=== PATIENT | female | born 1975 | race Caucasian/White ===

== ENCOUNTER 2018-03-02 19:13 | Observation (INO) | payer SELFPAY ==
[2018-03-02 19:14] VITALS: BP 73/43; PULSE 86; RESP 13; TEMP 36.8; O2SAT 95; BMI 29.9
[2018-03-02 19:16] VITALS: BP 79/51; PULSE 88; RESP 21; O2SAT 94
[2018-03-02] MEDS: 0.9% Normal Saline 1,000 ML 999 ML IV ×2 (19:20→21:30)
[2018-03-02] MEDS: Activated Charcoal/Sorbitol 50 GM/240 ML BOT PO (19:26)
[2018-03-02 19:34] LABS: Absolute Lymphocyte Count 3.02 X10^3/ul (0.83-4.51); Absolute Neutrophil Count 3.1 X10^3/uL (2.0-7.7); Basophil# 0.02 X10^3/uL; Basophil% 0.3 % (0-1); Eosinophil# 0.03 X10^3/uL; Eosinophils% 0.5 % (0-5); Hematocrit 42.5 % (37-47); Hemoglobin 14.4 g/dl (12.0-15.0); Lymphocyte # 3.02 X10^3/ul (4.0); Lymphocyte % 46.1 % (19-41); Mean Corp Hgb Conc 33.9 g/gl (32-36); Mean Corpuscular Hgb 31.1 pg (27.0-32.0); Mean Corpuscular Volume 91.8 fL (81-99); Mean Platelet Vol. 10.3 fl (6.2-12.0); Monocyte# 0.36 X10^3/uL; Monocyte% 5.5 % (0-10); Neutrophil # 3.11 X10^3/uL (2.7-7.7); Neutrophil % 47.4 % (47-70); Platelet Count 261 K/mm3 (150-450); RBC Distribution Width CV 13.7 % (11.6-14.6); RBC Distribution Width SD 45.5 fl (35.1-43.9); Red Blood Count 4.63 M/mm3 (4.2-5.4); White Blood Count 6.6 K/mm3 (4.4-11.0)
[2018-03-02 19:38] LABS: POSITIVE COUNT NO; POSITIVE DIFFERENTIAL NO; POSITIVE MORPHOLOGY NO
[2018-03-02 19:50] LABS: Anion Gap 14 (5-15); BUN 11 mg/dL (7-18); BUN/Creat Ratio 12.1 RATIO (10-20); Calcium,Total 8.6 mg/dL (8.5-10.1); Chloride 111 mmol/L (98-107); Creatinine, Serum 0.91 mg/dL (0.55-1.02); EST Glomerular Filtration Rate 72 mL/min (>60); Est Glom Filt Rate - Afr Amer 87 mL/min (>60); Estimated Creatinine Clearance 71.73 ml/min; Glucose 106 mg/dL (74-106); Potassium 2.8 mmol/L (3.5-5.1); Sodium Level 145 mmol/L (136-145)
[2018-03-02 20:03] LABS: Pregnancy, Serum, hCG Quali. NEGATIVE Negative (0-9 Nonpreg)
--- NOTE | 2018-03-02 20:27 | ED.VISSUMM ---
- ER Visit Summary Date of Service: 03/02/18 Chief Complaint: Overdose History of Present Illness: The patient is a 43 F presenting after overdose. Patient was initially lethargic but responding to voice and sternal rub. She states she took trazodone, half bottle to sleep. She denies suicidal intent. She states she does want to go to sleep. She took between 10-20 50 mg trazodone. She has a history of depression. She denies intentional overdose. She was drinking wine as well. Denies other ingestion. Physical Examination: Vitals blood pressure 79/51, temperature 98.3, heart rate 88, respiratory rate 21. Pulse ox 94% on 2 L. HEENT exam is unremarkable. Neck is supple. Lungs are clear and equal bilaterally. Heart is regular rate and rhythm. Abdomen is soft nontender nondistended. Extremities are unremarkable. Skin is warm and dry. No focal neurologic deficit. Arousable to voice and sternal rub. Remainder of exam is unremarkable. Emergency Department Course and Treatment: Patient was given IV fluids with improvement of her blood pressure. She was given activated charcoal. CBC, chemistries unremarkable other than potassium 2.8. HCG negative. She became nauseated and started vomiting. She was unable to tolerate p.o. potassium replacement and was ordered IV potassium replacement. She was given phenergan IV. Alcohol level 206. Tylenol is negative. Salicylate 5.0. EKG is sinus rhythm rate of 91 with a QTC of 536. Discussed with poison control. Due to her prolonged QT, they recommend observation overnight. Discussed with the hospitalist for admission. Disposition: Admission Impression: Trazodone overdose, prolonged QT This note was generated with [employer] dictation software. It may contain incorrect words, spelling, and punctuation that were not noted in review of the chart prior to signing ED Disposition - Plan for ED Patient: Chief Complaint: Overdose
[2018-03-02 21:11] LABS: Acetaminophen (Tylenol) Level < 2.0 ug/mL (10.0-30.0)
--- NOTE | 2018-03-02 21:20 | ED.RN ---
patient incontinent and then assisted up to bsc. pt then vomited in bed and on self. pt cleaned up, gown, changed, and bedding changed. pt assisted back to bed after obtaining urine specimen. family at bedside.
[2018-03-02 21:37] VITALS: BP 119/90; PULSE 111; RESP 21; O2SAT 95
[2018-03-02] MEDS: proMETHazine 25 MG/ML Syringe 6.25 MG IV (21:43)
--- NOTE | 2018-03-02 21:43 | ED.RN ---
CALLED [facility]. SHE STATED SHE WILL LET YUE KNOW THE PT NEEDS TO BE SEEN.
--- NOTE | 2018-03-02 21:44 | ED.RN ---
PATIENT BEING COOPERATIVE AT THIS TIME. FAMILY AT BEDSIDE. PT CONTINUES TO DENY SHE IS SUICIDAL. PT THREW UP HER POTASSIUM AFTER SHE TOOK IT ORALLY. PT MEDICATED WITH IV PHENERGAN.
[2018-03-02 21:46] LABS: Amphetamine Urine VISTA NEGATIVE (<1000 ng/mL); Barbiturate Urine VISTA NEGATIVE (< 200 ng/mL); Benzodiazepine Urine VISTA NEGATIVE (< 200 ng/mL); Cocaine Urine VISTA NEGATIVE (< 300 ng/mL); Ecstacy Urine VISTA NEGATIVE (< 500 ng/mL); Methadone Urine VISTA NEGATIVE (< 300 ng/mL); PCP Urine VISTA NEGATIVE (< 25 ng/mL); THC Urine VISTA NEGATIVE (< 50 ng/mL); Vista UDS pH Range 6
--- NOTE | 2018-03-02 22:13 | ED.RN ---
patient bedding changed after urinating and having a liquid bowel movement in bed. pt also cleaned up. pt resting in bed without complaint.
--- NOTE | 2018-03-02 22:14 | NURSING ---
YUE CALLED TO LET US KNOW HE WILL BE HERE AROUND 12:15AM TO SEE PT.
[2018-03-02 22:39] LABS: Magnesium 2.5 mg/dL (1.6-2.6)
--- NOTE | 2018-03-02 22:45 | ED.RN ---
YUE SAID HE IS GOING TO LET MADISYN KNOW PT NEEDS TO BE SEEN IN THE MORNING.
--- NOTE | 2018-03-02 23:23 | ED.RN ---
THIS BROADCAST DESIGNER LET ICU KNOW THAT PT NEEDS TO BE SEEN BY [facility] IN THE MORNING.
--- NOTE | 2018-03-02 23:49 | PCM.HP.STD ---
Problem List (1) Overdose of trazodone Status: Acute (2) Depression Status: Chronic History of Present Illness Date of Admission: 03/02/18 Chief Complaint: Trazodone overdose today The patient is a 43 year old F with history of depression on trazodone 100 mg p.o. nightly, Klonopin and Celexa was brought to ED after she had about 10-20 tablets of trazodone 50 mg. She also drank to have glasses of wine. She took it for sleep. She denies suicidal intent/ideation or attempt. She does not feel that she is depressed. She had 2 times vomiting and was given Phenergan. EKG showed normal sinus rhythm with QTc 520 ms. Her vitals in the triage shows blood pressure 79/51, temperature 98.3, heart rate 88/min respiratory 21. Pulse ox was 94% on 3 L of oxygen. ED physician Dr. Hurt discussed with the poison control and she got charcoal 50 g. She also had Phenergan. She had about 2 L of IV fluid normal saline. Repeat blood pressure is 119/90. ICU admission, follow-up QTc interval and electrolytes and monitoring was recommended When I saw the patient, she is alert awake oriented ?3. She said she had vomiting which contains the pill of trazodone. She also had one loose bowel movement. Denies GI bleed. Denies any focal neurological symptoms, tremors, myoclonus. [] Past Medical History Past Medical History (Chronic Problems): Chronic Problems Depression (Chronic) Allergies No Known Allergies Allergy (Verified 10/17/16 17:44) Home Medications: Ambulatory Orders Medication Instructions Recorded Citalopram [Celexa] 40 mg PO DAILY 10/17/16 Clonazepam [Klonopin] 0.5 mg PO QHS PRN PRN 03/02/18 traZODone [Desyrel] 100 mg PO QHS 03/02/18 Smoking Status: Current every day smoker - *Family History Paternal History Items: No pertinent history Review of Systems Constitutional: Denies: Chills, Fever, Weight Change HEENT: Denies: Head Aches, Sinus Congestion, Sinus Drainage Cardiovascular: Denies: Chest Pain, Palpitations Respiratory: Denies: Cough, Shortness of breath at rest, Sputum production Gastrointestinal: Reports: Diarrhea, Nausea, Vomiting, - - 1 fecal incontinence. Denies: Abdominal Pain Genitourinary: Denies: Dysuria, Incontinence Musculoskeletal: Denies: Joint Pain, Joint Tenderness Skin: Denies: Rash, Wounds Neurological: Denies: Numbness, Tingling, Focal weakness Psychiatric: Reports: Depression. Denies: Anxiety, Homicidal Ideations, Suicidal Ideations Hematologic/ Lymphatic: Denies: Easy Bruising, Easy Bleeding VTE Information - Inpt Only VTE Present on Admission: No VTE Mechan Device Prophylaxis: None VTE Pharm Prophylaxis ordered?: Yes Patient Problems: Active and Suspected Problems Overdose of trazodone (Acute) - Physical Exam General: Alert, Oriented x3, Cooperative HEENT: Atraumatic, PERRLA, EOMI, Normocephalic Oral: Dry Mucosa Neck: Supple, No JVD, Negative Carotid Bruits Lungs: Clear to auscultation, Normal air movement Cardiovascular: Regular rate, Regular Rhythm, Normal S1, Normal S2, No murmurs Abdomen: Bowel Sounds Present, Soft, Non Tender, Non-Distended Extremities: No edema, Capillary Refill Less than 3 Seconds Skin: No rashes, No breakdown Musculoskeletal: No Tenderness to Palpation of Joints or Extremities Neurological: Cranial nerves II-XII grossly intact Psych/Mental Status: Normal Affect, Appropriate Vital Signs Temp Pulse Resp BP Pulse Ox 98.3 F 111 H 21 H 119/90 H 95 03/02/18 19:14 03/02/18 21:37 03/02/18 21:37 03/02/18 21:37 03/02/18 21:37 Assessment/Plan All Active Problems Overdose of trazodone (Acute) The patient is a 43 year old F with history of depression on trazodone 100 mg p.o. nightly, Klonopin and Celexa was brought to ED after she had about 10-20 tablets of trazodone 50 mg. She also drank to have glasses of wine. She took it for sleep. She denies suicidal intent/ideation or attempt. She does not feel that she is depressed. She had 2 times vomiting and was given Phenergan. EKG showed normal sinus rhythm with QTc 520 ms. Her vitals in the triage shows blood pressure 79/51, temperature 98.3, heart rate 88/min respiratory 21. Pulse ox was 94% on 3 L of oxygen. ED physician Dr. Hurt discussed with the poison control and she got charcoal 50 g. She also had Phenergan. She had about 2 L of IV fluid normal saline. Repeat blood pressure is 119/90. ICU admission, follow-up QTc interval and electrolytes and monitoring was recommended When I saw the patient, she is mildly drowsy and lethargic and felt sleepy but oriented ?3. She said she had vomiting which contains the pill of trazodone. She also had one loose bowel movement. Denies GI bleed. Denies any focal neurological symptoms, tremors, myoclonus. 1. Trazodone overdose with mild toxic encephalopathy from trazodone and alcohol: I see her admission and continuous cardiac monitoring. Repeat EKG every 4 hourly for 3 times. Replace electrolytes. LFT, CK and troponin ordered. U tox shows positive without alcohol. Otherwise U tox screen is negative. 2. QTC prolongation secondary to trazodone: Avoid QTC prolonging drug like Zofran, Phenergan, Celexa. Patient can have metoclopramide or prochlorperazine if needed for vomiting. 3. Toxic encephalopathy secondary to trazodone and alcohol use: 4 Hypokalemia with hyperchloremic metabolic acidosis: Anion gap is 14. Replace potassium to keep potassium about 4 mEq. ABG ordered. Repeat BMP, phosphorus and magnesium in the morning after replacement. 5. Depression: Hold home medications of trazodone, Klonopin and Celexa. DVT prophylaxis: On Lovenox 40 mg subcu daily This note was generated with [employer] dictation software. Every effort was made to ensure accuracy, however computerized flask fitter mistakes may persist. Code Visit Inpatient E&M: 26876 Init Hosp L3
[2018-03-02 23:51] VITALS: BP 104/67; PULSE 89; RESP 19; TEMP 36.8; O2SAT 98; BMI 31.3
[2018-03-03] VITALS (27 sets, daily range): BP systolic 82–120; BP diastolic 51–76; PULSE 75–96; RESP 15–22; TEMP 36.7–37; O2SAT 94–100
[2018-03-03] MEDS: 0.9% Normal Saline 1,000 ML 100 ML IV (00:47)
[2018-03-03 01:01] LABS: Bacteria 0 SEEN /hpf (None Seen); Mucous, Urine 0 SEEN /hpf (<or=2+); Red Blood Cells-Urine 0 SEEN /hpf (0-5)
[2018-03-03 01:09] LABS: AST(SGOT) 29 U/L (15-37); Alanine Aminotransfer ALT/SGPT 55 U/L (13-56); Alkaline Phosphatase 65 U/L (45-117); Bilirubin, Direct 0.09 mg/dL (0.00-0.30); CPK Total, Creatine Kinase 100 U/L (26-192); Globulin 3.2 g/dL (2.2-4.2); Protein, Total 7.2 g/dL (6.4-8.2)
[2018-03-03] MEDS: 0.9% NaCl Peripheral Flush Adult/Peds IV (01:22)
[2018-03-03] MEDS: 0.9% Normal Saline 1,000 ML 999 ML IV ×2 (01:22→02:26)
[2018-03-03 01:26] LABS: M R Staph aureus DNA By PCR Negative (Negative); Probe Check PASS; Specimen Processing Control PASS
[2018-03-03 02:21] LABS: Color, Urine Straw (Yellow); Glucose, Dipstick Normal (Normal); Ketone-Dipstick Negative (Negative); Leukocyte Esterase-Dipstick Negative /ul (Negative); Nitrite-Dipstick Negative (Negative); Occult Blood-Urine Negative /ul (Negative); Protein-Dipstick Negative (Negative); Urine Bilirubin Dipstick Negative (Negative); Urine Clarity Clear (Clear); Urine Urobilinogen Normal (Normal); Urine pH 6.5 (5.0 - 8.0)
[2018-03-03] MEDS: Enoxaparin 40 MG/0.4 ML Syringe SC (02:25)
[2018-03-03] MEDS: 0.9% Normal Saline 1,000 ML 250 ML IV (02:26)
[2018-03-03 02:32] LABS: Squamous Epithelial Cells - UA 5-10 SEEN /hpf (5-10); White Blood Cells 0-5 SEEN /hpf (0-5)
[2018-03-03 05:31] LABS: Blood Gas Specimen Type VEN; O2 Delivery Device Nasal Can; Time Given 515; VBG BASE EXCESS -9 mmol/L (-1.0-3.5); VBG Bicarbonate 18 mmol/L (22-26); VBG Oxygen Content 19 mmol/L (23-33); VBG PO2 53 mmHg (25-40); VBG SO2 84 % (50-70); VBG pCO2 36.8 mmHg (41-51)
[2018-03-03 06:34] LABS: Anion Gap 13 (5-15); BUN 5 mg/dL (7-18); BUN/Creat Ratio 6.7 RATIO (10-20); Calcium,Total 6.7 mg/dL (8.5-10.1); Chloride 117 mmol/L (98-107); Creatinine, Serum 0.75 mg/dL (0.55-1.02); EST Glomerular Filtration Rate 90 mL/min (>60); Est Glom Filt Rate - Afr Amer 109 mL/min (>60); Estimated Creatinine Clearance 87.03 ml/min; Glucose 87 mg/dL (74-106); Magnesium 1.7 mg/dL (1.6-2.6); Phosphorus 4.1 mg/dL (2.5-4.9); Potassium 3.8 mmol/L (3.5-5.1); Sodium Level 148 mmol/L (136-145)
[2018-03-03 07:26] LABS: Bedside Glucose 110 mg/dL (70-110)
--- NOTE | 2018-03-03 09:22 | PCM.PN.HOSP ---
Patient Problems: Active and Suspected Problems Overdose of trazodone (Acute) Subjective: Patient seen and examined. She was admitted after being found with altered mental status after she took about 10-20 tablets of 50 mg trazodone and one half glasses of wine in order to enable her to have some good sleep. She denied any suicidal intent or ideation. She was found to have prolonged QT of 520 ms on admission which gradually went down to around 519 ms. Poison control was called from the ED and she was given charcoal 50 g and also given Phenergan and IV fluid normal saline. She was hypokalemic and this was replaced. Next Patient has remained stable. She has no complaints this morning. She denies any fever chills, any cough or chest pain, shortness of breath, abdominal pain, any diarrhea vomiting. Review of systems otherwise negative. She is awaiting mental health counselor evaluation this morning. Patient denies any family stressors but per discussion with nurse, patient's recently left about a week ago and this could have contributed to her taking this overdose of trazodone. Review of systems otherwise negative. Labs and medications reviewed. Vitals/I&O's: Vital Signs Temp Pulse Resp BP Pulse Ox 98.1 F 87 22 H 114/76 94 03/03/18 08:00 03/03/18 09:00 03/03/18 09:00 03/03/18 09:00 03/03/18 09:00 Oxygen Flow Rate (L/min) 2 Oxygen Delivery Method Room Air Weight: 194 lb 7.163 oz Body Mass Index (BMI) 31.3 Intake and Output for Last 24 Hours 03/01/18 03/02/18 03/03/18 23:59 23:59 23:59 Intake Total 3232 / 3232 Balance 3232 / 3232 General: Alert, Oriented x3, Cooperative, No apparent distress HEENT: Atraumatic, PERRLA, EOMI, Normocephalic Oral: Moist Mucosa Neck: Supple, No JVD, Negative Carotid Bruits Lungs: Clear to auscultation, Normal air movement, No rhonchi, No wheeze, No rales Cardiovascular: Regular rate, Regular Rhythm, Normal S1, Normal S2, No murmurs Abdomen: Bowel Sounds Present, Soft, Non Tender, Non-Distended, No Hepato-splenomegaly Extremities: No clubbing, No cyanosis, No edema, Capillary Refill Less than 3 Seconds Skin: No rashes, No breakdown Musculoskeletal: No Tenderness to Palpation of Joints or Extremities Lymphatic: No Cervical, Supraclavicular, or Inguinal Adenopathy Neurological: Cranial nerves II-XII grossly intact, Motor Exam 5/5 strength throughout Psych/Mental Status: Normal Affect, Appropriate, Alert and oriented to time, place, person, mood and affect Laboratory Results 03/02/18 23:50: MRSA (PCR) Negative 03/03/18 01:20: Troponin I < 0.015 03/03/18 05:10: Sodium 148 H, Potassium 3.8, Chloride 117 H, Carbon Dioxide 18.0 L, Anion Gap 13, BUN 5 L, Creatinine 0.75, Estim Creat Clear Calc 87.03, Est GFR (MDRD) Af Amer 109, Est GFR (MDRD) Non-Af 90, BUN/Creatinine Ratio 6.7 L, Glucose 87, Calcium 6.7 L, Phosphorus 4.1, Magnesium 1.7 03/03/18 05:10: Troponin I < 0.015 03/03/18 05:24: Specimen Type NICKI, VBG pH 7.30 L, VBG pO2 53 H, VBG O2 Sat (Calc) 84 H, VBG O2 Content 19 L, VBG Base Excess -9 L, POC Mix VBG pCO2 Pt Tmp 36.8 L, O2 Delivery Device Nasal Can, Liter Flow 2.0, Blood Gas Notified Whom HOSP , Blood Gas Notified Time 515 Current Medications Enoxaparin Sodium (Lovenox) 40 mg SC DAILY@1000 LIZ Last Admin: 03/03/18 02:25 Dose: 40 mg Sodium Chloride () 250 mls @ 15 mls/hr IV .[id number] PRN PRN Reason: SALINE FLUSH Potassium Chloride/Dextrose/Sod Cl (Kcl 20meq In D5.45ns 1000ml) 1,000 mls @ 100 mls/hr IV .Q10H [facility] Last Admin: 03/03/18 06:33 Dose: 100 mls/hr Magnesium Hydroxide (Milk Of Magnesia) 30 ml PO DAILY PRN PRN PRN Reason: Constipation Metoclopramide HCl (Reglan) 10 mg IV Q6H PRN PRN PRN Reason: NAUSEA Sodium Chloride () 5 - 30 ml IV UD PRN PRN Reason: SALINE FLUSH Last Admin: 03/03/18 01:22 Dose: 10 ml Medical Necessity - Tobacco Use Smoking Status: Current every day smoker Tobacco Use: Cigarettes Assessment/Plan All Active Problems Overdose of trazodone (Acute) 1. Acute metabolic encephalopathy due to trazodone overdose and alcohol intake. Resolving. Patient is alert and oriented ?3. Poison Control consulted by ED. Received 50 g of charcoal. Initial EKG showed QTC of 526 and has trended down to around 519ms was hypotensive in ED with BP ~ 79/51; resolved with IVF administration troponin x 2 was negative will transfer to PCU from ICU. for mental health counselor evaluation today. will monitor with telemetry 2. QTc prolongation due to trazodone overdose improving. Was 526ms on admission; down to 519ms this morning. avoid QTc prolonging meds such as Zofran, Celexa and Phenergan. 3. Hypokalemia: Resolved. Was two-point unit on admission, now 3.8. 4. Mild hyperchloremic anion gap metabolic acidosis Bicarb up to 18 this morning. Anion gap today is 12. will monitor 5. Hypernatremia Na is 148 today. likely due to IVF administration will dc IVF and monitor 6. Depression: Home meds of trazodone, Klonopin and Celexa on hold. Awaiting mental health counselor evaluation. 7. DVT prophylaxis: Lovenox 40 mg subcu daily Code Visit OBSV E&M: 70055 Subsequent observation care L2
--- NOTE | 2018-03-03 09:32 | PN_ITS ---
Patient Problems: Active and Suspected Problems Overdose of trazodone (Acute) Subjective: Patient seen and examined. She was admitted after being found with altered mental status after she took about 10-20 tablets of 50 mg trazodone and one half glasses of wine in order to enable her to have some good sleep. She denied any suicidal intent or ideation. She was found to have prolonged QT of 520 ms on admission which gradually went down to around 519 ms. Poison control was called from the ED and she was given charcoal 50 g and also given Phenergan and IV fluid normal saline. She was hypokalemic and this was replaced. Next Patient has remained stable. She has no complaints this morning. She denies any fever chills, any cough or chest pain, shortness of breath, abdominal pain, any diarrhea vomiting. Review of systems otherwise negative. She is awaiting mental health counselor evaluation this morning. Patient denies any family stressors but per discussion with nurse, patient's recently left about a week ago and this could have contributed to her taking this overdose of trazodone. Review of systems otherwise negative. Labs and medications reviewed. Vitals/I&O's: Vital Signs Temp Pulse Resp BP Pulse Ox 98.1 F 87 22 H 114/76 94 03/03/18 08:00 03/03/18 09:00 03/03/18 09:00 03/03/18 09:00 03/03/18 09:00 Oxygen Flow Rate (L/min) 2 Oxygen Delivery Method Room Air Weight: 194 lb 7.163 oz Body Mass Index (BMI) 31.3 Intake and Output for Last 24 Hours 03/01/18 03/02/18 03/03/18 23:59 23:59 23:59 Intake Total 3232 / 3232 Balance 3232 / 3232 General: Alert, Oriented x3, Cooperative, No apparent distress HEENT: Atraumatic, PERRLA, EOMI, Normocephalic Oral: Moist Mucosa Neck: Supple, No JVD, Negative Carotid Bruits Lungs: Clear to auscultation, Normal air movement, No rhonchi, No wheeze, No rales Cardiovascular: Regular rate, Regular Rhythm, Normal S1, Normal S2, No murmurs Abdomen: Bowel Sounds Present, Soft, Non Tender, Non-Distended, No Hepato- splenomegaly Extremities: No clubbing, No cyanosis, No edema, Capillary Refill Less than 3 Seconds Skin: No rashes, No breakdown Musculoskeletal: No Tenderness to Palpation of Joints or Extremities Lymphatic: No Cervical, Supraclavicular, or Inguinal Adenopathy Neurological: Cranial nerves II-XII grossly intact, Motor Exam 5/5 strength throughout Psych/Mental Status: Normal Affect, Appropriate, Alert and oriented to time, place, person, mood and affect Laboratory Results 03/02/18 23:50: MRSA (PCR) Negative 03/03/18 01:20: Troponin I < 0.015 03/03/18 05:10: Sodium 148 H, Potassium 3.8, Chloride 117 H, Carbon Dioxide 18.0 L, Anion Gap 13, BUN 5 L, Creatinine 0.75, Estim Creat Clear Calc 87.03, Est GFR (MDRD) Af Amer 109, Est GFR (MDRD) Non-Af 90, BUN/Creatinine Ratio 6.7 L , Glucose 87, Calcium 6.7 L, Phosphorus 4.1, Magnesium 1.7 03/03/18 05:10: Troponin I < 0.015 03/03/18 05:24: Specimen Type NICKI, VBG pH 7.30 L, VBG pO2 53 H, VBG O2 Sat (Calc ) 84 H, VBG O2 Content 19 L, VBG Base Excess -9 L, POC Mix VBG pCO2 Pt Tmp 36.8 L, O2 Delivery Device Nasal Can, Liter Flow 2.0, Blood Gas Notified Whom HOSP , Blood Gas Notified Time 515 Current Medications Enoxaparin Sodium (Lovenox) 40 mg SC DAILY@1000 LIZ Last Admin: 03/03/18 02:25 Dose: 40 mg Sodium Chloride () 250 mls @ 15 mls/hr IV .[id number] PRN PRN Reason: SALINE FLUSH Potassium Chloride/Dextrose/Sod Cl (Kcl 20meq In D5.45ns 1000ml) 1,000 mls @ 100 mls/hr IV .Q10H [facility] Last Admin: 03/03/18 06:33 Dose: 100 mls/hr Magnesium Hydroxide (Milk Of Magnesia) 30 ml PO DAILY PRN PRN PRN Reason: Constipation Metoclopramide HCl (Reglan) 10 mg IV Q6H PRN PRN PRN Reason: NAUSEA Sodium Chloride () 5 - 30 ml IV UD PRN PRN Reason: SALINE FLUSH Last Admin: 03/03/18 01:22 Dose: 10 ml Medical Necessity - Tobacco Use Smoking Status: Current every day smoker Tobacco Use: Cigarettes Assessment/Plan All Active Problems Overdose of trazodone (Acute) 1. Acute metabolic encephalopathy due to trazodone overdose and alcohol intake. * Resolving. Patient is alert and oriented ?3. * Poison Control consulted by ED. Received 50 g of charcoal. Initial EKG showed QTC of 526 and has trended down to around 519ms * was hypotensive in ED with BP ~ 79/51; resolved with IVF administration * troponin x 2 was negative * will transfer to PCU from ICU. * for mental health counselor evaluation today. * will monitor with telemetry * 2. QTc prolongation due to trazodone overdose * improving. Was 526ms on admission; down to 519ms this morning. * avoid QTc prolonging meds such as Zofran, Celexa and Phenergan. * 3. Hypokalemia: Resolved. Was two-point unit on admission, now 3.8. 4. Mild hyperchloremic anion gap metabolic acidosis * Bicarb up to 18 this morning. Anion gap today is 12. * will monitor * 5. Hypernatremia * Na is 148 today. likely due to IVF administration * will dc IVF and monitor * 6. Depression: Home meds of trazodone, Klonopin and Celexa on hold. Awaiting mental health counselor evaluation. 7. DVT prophylaxis: Lovenox 40 mg subcu daily Code Visit OBSV E&M: 91422 Subsequent observation care L2
[2018-03-03] MEDS: 0.9% NaCl IVPB Med Flush (250 mL) 15 ML IV (11:31)
--- NOTE | 2018-03-03 17:48 | PCM.DC ---
- Discharge Diagnoses Current Active Problems: Current Active and Chronic Problems Overdose of trazodone (Acute) Depression (Chronic) You will use the following diet at home:: No restrictions Your food should be the consistency of: Regular Your liquids should be the consistency of: Regular/Thin Discharge Activity: Return to Normal Activity Weight Bearing Status: Weight bearing as tolerated Call your doctor if you observe: Shortness of breath, Dizziness Instructions: Identifying Causes of Stress, Know the Signs and Symptoms of Depression, Recognizing Suicide Warning Signs in Others, Recognizing Suicide Warning Signs in Yourself Additional Instructions: Do not take Celexa, Trazodone or Klonopin as they can cause QT prolongation. Follow up with PCP within one week with repeat EKG to check QTc, and for PCP to give OK to resume these meds. Allergies/Adverse Reactions: Allergies No Known Allergies Allergy (Verified 10/17/16 17:44) Orders to be completed after discharge: 12 Lead EKG [[facility]] Location: None Selected Primary Care Physician: Erick Cardozo MD [Primary Care Provider] - Please follow up with your Primary Care Physician in: within one week Test Results: Test results from this visit will be discussed in further detail at your follow-up appointment, if applicable. Proposed Discharge Date: 03/03/18
--- NOTE | 2018-03-03 17:51 | PCM.DC.SUM ---
Discharge Date and Diagnosis - Problem List Patient Problems: Active and Suspected Problems Overdose of trazodone (Acute) Date of Admission: 03/02/18 Date of Discharge: 03/03/18 - Primary Discharge Diagnosis Active and Suspected Problems Overdose of trazodone (Acute) - Secondary Discharge Diagnosis Chronic Problems Depression (Chronic) Hospital Course and Treatment Imaging Results: Laboratory Tests 03/02/18 03/02/18 03/02/18 19:10 19:20 19:20 WBC 6.6 RBC 4.63 Hgb 14.4 Hct 42.5 MCV 91.8 MCH 31.1 MCHC 33.9 RDW 13.7 RDW Differential 45.5 H Plt Count 261 MPV 10.3 Immature Gran % (Auto) 0.200 Neut % (Auto) 47.4 Lymph % (Auto) 46.1 H [place] % (Auto) 5.5 Eos % (Auto) 0.5 Baso % (Auto) 0.3 Absolute Neuts (auto) 3.1 Absolute Lymphs (auto) 3.02 Total Counted Not Reportable Specimen Type VBG pH VBG pO2 VBG O2 Sat (Calc) VBG O2 Content VBG Base Excess POC Mix VBG pCO2 Pt Tmp O2 Delivery Device Liter Flow Blood Gas Notified Whom Blood Gas Notified Time Sodium 145 Potassium 2.8 L Chloride 111 H Carbon Dioxide 20.0 L Anion Gap 14 BUN 11 Creatinine 0.91 Estim Creat Clear Calc 71.73 Est GFR (MDRD) Af Amer 87 Est GFR (MDRD) Non-Af 72 BUN/Creatinine Ratio 12.1 Glucose 106 Calcium 8.6 Phosphorus Magnesium Total Bilirubin Direct Bilirubin AST ALT Alkaline Phosphatase Total Creatine Kinase Troponin I Total Protein Albumin Globulin Serum , Qual Urine Color Urine Clarity Urine pH Ur Specific [place] Urine Protein Urine Glucose (UA) Urine Ketones Urine Occult Blood Urine Nitrite Urine Bilirubin Urine Urobilinogen Ur Leukocyte Esterase Urine RBC Urine WBC Ur Squamous Epith Cells Urine Bacteria Urine Mucus Salicylates Urine Opiates Screen Urine Methadone Screen Acetaminophen Ur Barbiturates Screen Ur Phencyclidine Scrn Ur Amphetamines Screen U Methamphetamin-MDMA U Benzodiazepines Scrn Urine Cocaine Screen U Cannabinoids Screen Ur Drug Screen Comment Ethyl Alcohol MRSA (PCR) POC Glucose 110 03/02/18 03/02/18 03/02/18 19:20 19:20 19:20 WBC RBC Hgb Hct MCV MCH MCHC RDW RDW Differential Plt Count MPV Immature Gran % (Auto) Neut % (Auto) Lymph % (Auto) [place] % (Auto) Eos % (Auto) Baso % (Auto) Absolute Neuts (auto) Absolute Lymphs (auto) Total Counted Specimen Type VBG pH VBG pO2 VBG O2 Sat (Calc) VBG O2 Content VBG Base Excess POC Mix VBG pCO2 Pt Tmp O2 Delivery Device Liter Flow Blood Gas Notified Whom Blood Gas Notified Time Sodium Potassium Chloride Carbon Dioxide Anion Gap BUN Creatinine Estim Creat Clear Calc Est GFR (MDRD) Af Amer Est GFR (MDRD) Non-Af BUN/Creatinine Ratio Glucose Calcium Phosphorus Magnesium 2.5 Total Bilirubin Direct Bilirubin AST ALT Alkaline Phosphatase Total Creatine Kinase Troponin I Total Protein Albumin Globulin Serum , Qual NEGATIVE Urine Color Urine Clarity Urine pH Ur Specific [place] Urine Protein Urine Glucose (UA) Urine Ketones Urine Occult Blood Urine Nitrite Urine Bilirubin Urine Urobilinogen Ur Leukocyte Esterase Urine RBC Urine WBC Ur Squamous Epith Cells Urine Bacteria Urine Mucus Salicylates 5.0 Urine Opiates Screen Urine Methadone Screen Acetaminophen < 2.0 L Ur Barbiturates Screen Ur Phencyclidine Scrn Ur Amphetamines Screen U Methamphetamin-MDMA U Benzodiazepines Scrn Urine Cocaine Screen U Cannabinoids Screen Ur Drug Screen Comment Ethyl Alcohol 206.0 MRSA (PCR) POC Glucose 03/02/18 03/02/18 03/02/18 19:20 19:20 21:20 WBC RBC Hgb Hct MCV MCH MCHC RDW RDW Differential Plt Count MPV Immature Gran % (Auto) Neut % (Auto) Lymph % (Auto) [place] % (Auto) Eos % (Auto) Baso % (Auto) Absolute Neuts (auto) Absolute Lymphs (auto) Total Counted Specimen Type VBG pH VBG pO2 VBG O2 Sat (Calc) VBG O2 Content VBG Base Excess POC Mix VBG pCO2 Pt Tmp O2 Delivery Device Liter Flow Blood Gas Notified Whom Blood Gas Notified Time Sodium Potassium Chloride Carbon Dioxide Anion Gap BUN Creatinine Estim Creat Clear Calc Est GFR (MDRD) Af Amer Est GFR (MDRD) Non-Af BUN/Creatinine Ratio Glucose Calcium Phosphorus Magnesium Total Bilirubin 0.30 Direct Bilirubin 0.09 AST 29 ALT 55 Alkaline Phosphatase 65 Total Creatine Kinase 100 Troponin I Total Protein 7.2 Albumin 4.0 Globulin 3.2 Serum , Qual Urine Color Straw Urine Clarity Clear Urine pH 6.5 Ur Specific [place] 1.010 Urine Protein Negative Urine Glucose (UA) Normal Urine Ketones Negative Urine Occult Blood Negative Urine Nitrite Negative Urine Bilirubin Negative Urine Urobilinogen Normal Ur Leukocyte Esterase Negative Urine RBC 0 SEEN Urine WBC 0-5 SEEN Ur Squamous Epith Cells 5-10 SEEN Urine Bacteria 0 SEEN Urine Mucus 0 SEEN Salicylates Urine Opiates Screen NEGATIVE Urine Methadone Screen NEGATIVE Acetaminophen Ur Barbiturates Screen NEGATIVE Ur Phencyclidine Scrn NEGATIVE Ur Amphetamines Screen NEGATIVE U Methamphetamin-MDMA NEGATIVE U Benzodiazepines Scrn NEGATIVE Urine Cocaine Screen NEGATIVE U Cannabinoids Screen NEGATIVE Ur Drug Screen Comment Ethyl Alcohol MRSA (PCR) POC Glucose 03/02/18 03/03/18 03/03/18 23:50 01:20 05:10 WBC RBC Hgb Hct MCV MCH MCHC RDW RDW Differential Plt Count MPV Immature Gran % (Auto) Neut % (Auto) Lymph % (Auto) [place] % (Auto) Eos % (Auto) Baso % (Auto) Absolute Neuts (auto) Absolute Lymphs (auto) Total Counted Specimen Type VBG pH VBG pO2 VBG O2 Sat (Calc) VBG O2 Content VBG Base Excess POC Mix VBG pCO2 Pt Tmp O2 Delivery Device Liter Flow Blood Gas Notified Whom Blood Gas Notified Time Sodium 148 H Potassium 3.8 Chloride 117 H Carbon Dioxide 18.0 L Anion Gap 13 BUN 5 L Creatinine 0.75 Estim Creat Clear Calc 87.03 Est GFR (MDRD) Af Amer 109 Est GFR (MDRD) Non-Af 90 BUN/Creatinine Ratio 6.7 L Glucose 87 Calcium 6.7 L Phosphorus 4.1 Magnesium 1.7 Total Bilirubin Direct Bilirubin AST ALT Alkaline Phosphatase Total Creatine Kinase Troponin I < 0.015 Total Protein Albumin Globulin Serum , Qual Urine Color Urine Clarity Urine pH Ur Specific [place] Urine Protein Urine Glucose (UA) Urine Ketones Urine Occult Blood Urine Nitrite Urine Bilirubin Urine Urobilinogen Ur Leukocyte Esterase Urine RBC Urine WBC Ur Squamous Epith Cells Urine Bacteria Urine Mucus Salicylates Urine Opiates Screen Urine Methadone Screen Acetaminophen Ur Barbiturates Screen Ur Phencyclidine Scrn Ur Amphetamines Screen U Methamphetamin-MDMA U Benzodiazepines Scrn Urine Cocaine Screen U Cannabinoids Screen Ur Drug Screen Comment Ethyl Alcohol MRSA (PCR) Negative POC Glucose 03/03/18 03/03/18 05:10 05:24 WBC RBC Hgb Hct MCV MCH MCHC RDW RDW Differential Plt Count MPV Immature Gran % (Auto) Neut % (Auto) Lymph % (Auto) [place] % (Auto) Eos % (Auto) Baso % (Auto) Absolute Neuts (auto) Absolute Lymphs (auto) Total Counted Specimen Type NICKI VBG pH 7.30 L VBG pO2 53 H VBG O2 Sat (Calc) 84 H VBG O2 Content 19 L VBG Base Excess -9 L POC Mix VBG pCO2 Pt Tmp 36.8 L O2 Delivery Device Nasal Can Liter Flow 2.0 Blood Gas Notified Whom HOSP Blood Gas Notified Time 515 Sodium Potassium Chloride Carbon Dioxide Anion Gap BUN Creatinine Estim Creat Clear Calc Est GFR (MDRD) Af Amer Est GFR (MDRD) Non-Af BUN/Creatinine Ratio Glucose Calcium Phosphorus Magnesium Total Bilirubin Direct Bilirubin AST ALT Alkaline Phosphatase Total Creatine Kinase Troponin I < 0.015 Total Protein Albumin Globulin Serum , Qual Urine Color Urine Clarity Urine pH Ur Specific [place] Urine Protein Urine Glucose (UA) Urine Ketones Urine Occult Blood Urine Nitrite Urine Bilirubin Urine Urobilinogen Ur Leukocyte Esterase Urine RBC Urine WBC Ur Squamous Epith Cells Urine Bacteria Urine Mucus Salicylates Urine Opiates Screen Urine Methadone Screen Acetaminophen Ur Barbiturates Screen Ur Phencyclidine Scrn Ur Amphetamines Screen U Methamphetamin-MDMA U Benzodiazepines Scrn Urine Cocaine Screen U Cannabinoids Screen Ur Drug Screen Comment Ethyl Alcohol MRSA (PCR) POC Glucose Mental health counselor Operations: None Procedures: None Summary of Care Provided: The patient is a 43 year old F with a history of depression and anxiety. She was admitted after she took several tablets of trazodone. She took about 10-20 tablets of 50 mg daily. She also drank about 1-1/2 glass of wine. She states she took it to get a good night sleep and denied any suicidal intention or ideation or attempts. She vomited twice once admitted to the ED because of vomiting. EKG done in the ED showed QTC of 520 ms. Blood pressure was 79/51 which resolved with IV fluid administration and heart rate was 88/min with respiratory rate of 21. Poison control was called by ED and she was given charcoal 50 g once an IV fluids normal saline. She was admitted and managed for trazodone toxicity, for follow-up QTC and electrolyte monitoring. QTc trended down to 519 and eventually to around 502ms. Patient was evaluated by mental health crisis and denied that she had any suicidal ideations and wanted to follow-up on outpatient basis. Patient remained stable and was discharged home on the evening of 03/03/2018. Her trazodone, Celexa and Klonopin were all stopped as they could cause QT prolongation. She is to have a follow-up EKG in about 2 days which is to be sent to her primary care doctor, Dr. Erick Lua for decision to be made about whether to resume antidepressants and antianxiety meds or otherwise. [] Discharge Activity: Return to Normal Activity Weight Bearing Status: Weight bearing as tolerated Call your doctor if you observe: Shortness of breath, Dizziness Other Amb Orders: 12 Lead EKG [[facility]] Location: None Selected Primary Care Physician: Erick Cardozo MD [Primary Care Provider] - Please follow up with your Primary Care Physician in: within one week Patient Instructions: Know the Signs and Symptoms of Depression, Recognizing Suicide Warning Signs in Yourself, Recognizing Suicide Warning Signs in Others, Identifying Causes of Stress Disposition: Home Minutes spent on discharge:: 35 Patient Condition:: Stable Medical Necessity - Tobacco Use Smoking Status: Current every day smoker Tobacco Use: Cigarettes Meaningful Use Info Meaningful Use Diagnoses (Choose all that apply): None applicable Code Visit Inpatient E&M: 06013 Disch Hosp
--- NOTE | 2018-03-03 19:23 | NURSING ---
pt d/c home w/mother, verbalized understanding for safety plan established by crisis counselor.
== END 2018-03-03 19:25 | disposition home or self-care (01) ==
LOC: ED 19:56 → ICU 23:23
PROVIDERS: Admitting Provider Internal Medicine; Emergency Provider Emergency Medicine; Family Provider Family Medicine; PCP Family Medicine; Visit Provider Student in an Organized Health Care Education/Training Program
DX: T43.211A Poisoning by selective serotonin and norepinephrine reuptake inhibitors, accidental (unintentional), initial encounter (principal); R53.83 Other fatigue; F32.9 Major depressive disorder, single episode, unspecified; I45.81 Long QT syndrome; Z79.899 Other long term (current) drug therapy; G92 Toxic encephalopathy; E87.2 Acidosis; E87.6 Hypokalemia; F41.9 Anxiety disorder, unspecified; F17.210 Nicotine dependence, cigarettes, uncomplicated; E87.0 Hyperosmolality and hypernatremia
CPT/HCPCS: 80048; 80076; 80307; 80320; 80329; 81001; 82550; 82803; 82962; 83735; 84100; 84484; 84703; 85025; 87641; 93005; 96361; 96372; 96374; 99218; 99282; J7030; J7050; A4216; G0378; G0480; J0610

== ENCOUNTER 2021-04-20 15:20 | Emergency (ER) | payer MEDICAID, SELFPAY ==
[2021-04-20 15:20] VITALS: BP 129/81; PULSE 95; RESP 16; TEMP 36.8; O2SAT 98; BMI 26.4
--- NOTE | 2021-04-20 15:41 | ED.VIS.FEGU ---
HPI HPI - Female History of Present Illness Chief Complaint: Flank Pain Narrative Narrative: 46-year-old female presenting with dysuria and hematuria for the last 3 days. She states that yesterday she started to have some right lower back pain. She denies history of kidney stones. Patient has been taking Uristat at home without relief. She has not had a fever or chills. She does not have nausea or vomiting. She denies vaginal or GI complaints. PFSH PFSH Medical History no medical history Home Medications sulfamethoxazole-trimethoprim [Bactrim DS] 1 tab PO BID 14 Days #28 tab 04/20/21 [Rx Last Taken Unknown] Allergy/AdvReac Type Severity Reaction Status Date / Time No Known Allergies Allergy Verified 04/20/21 15:24 Family History Father Cancer of stomach Cancer of lung Other Patient's father is Surgical History no surgical history Social History Smoking Status: Current every day smoker tobacco type: cigarettes ROS ROS ED Constitutional Constitutional ED: Denies chills or fever(s) Eyes Eyes: Denies blurry vision or change in vision ENT ENT ED: Denies ear pain or rhinorrhea Cardiovascular Cardiovascular: Denies palpitations or racing heartbeat Respiratory/Chest Respiratory/Chest: Denies cough or dyspnea Gastrointestinal Gastrointestinal: Denies abdominal pain, nausea or vomiting Genitourinary Genitourinary ED: Reports dysuria and urinary frequency Musculoskeletal Musculoskeletal: Reports other Details: Right lower back pain Integumentary Denies Abrasions or rash Neurologic Neurologic: Denies headache(s) or paresthesias EXAM Physical Exam Const Vital Signs: 04/20/21 15:20 Temperature 98.3 F Temperature Source Temporal Pulse Rate 95 Respiratory Rate 16 Blood Pressure 129/81 H Blood Pressure Mean 97 Pulse Ox 98 Oxygen Delivery Method Room Air Positive well nourished General Appearance ED: NAD; Negative for pallor HEENT Reports moist mucous membranes Negative for trauma Eyes PERRL and EOMs intact bilaterally Resp normal respiratory effort and clear to auscultation bilaterally Cardio regular rate and regular rhythm GI normal to inspection, nondistended, normoactive bowel sounds Back/Spine General Back: CVA tenderness right Neuro oriented x3 and CN's II-XII intact bilaterally Sensorium / Orientation: alert Psych mental status grossly normal Skin General Skin Exam: Negative for jaundice or pallor MDM MDM MDM Narrative Medical decision making narrative: Patient presented with UTI symptoms and slight CVA tenderness on the right. She has no systemic signs or symptoms. No history of kidney stones. Urinalysis consistent with UTI. She will be started on Bactrim to treat her for pyelonephritis. She is given return precautions. Impression: 1. Pyelonephritis Lab Data Labs: Laboratory Results - last 24 hr 04/20/21 16:00 Urine Color SEE COMMENT BELOW Urine Clarity Cloudy Urine pH 6.0 Ur Specific [place] 1.020 Urine Protein 100 H Urine Glucose (UA) Normal Urine Ketones Negative Urine Occult Blood 50 H Urine Nitrite Positive H Urine Bilirubin 6 H Urine Urobilinogen 12 H Ur Leukocyte Esterase 500 H Urine RBC 5-10 SEEN Urine WBC >100 SEEN Ur Squamous Epith Cells 0 SEEN Urine Bacteria RARE Urine Mucus 0 SEEN Discharge Plan Triage Chief Complaint: Flank Pain ED Provider: James Ley Dx/Rx/DC Orders Instructions: ED Pyelonephritis, Female (Adult) Prescriptions: New sulfamethoxazole-trimethoprim [Bactrim DS] 800-160 mg tablet 1 tab PO BID 14 Days Qty: 28 RF: 0 Primary Care Provider: Care Physician,No Primary Referrals: Erick Cardozo MD [STAFF PHYSICIAN] - Immanuel Santamaria MD [STAFF PHYSICIAN] - As Needed Disposition Disposition: Home, Self Care Discharge Date/Time: 04/20/21 16:40
[2021-04-20 16:03] LABS: Mucous, Urine 0 SEEN /hpf (<or=2+); Squamous Epithelial Cells - UA 0 SEEN /hpf (5-10)
[2021-04-20 16:07] LABS: Color, Urine SEE COMMENT BELOW (Yellow); Glucose, Dipstick Normal (Normal); Ketone-Dipstick Negative (Negative); Leukocyte Esterase-Dipstick 500 /ul (Negative); Nitrite-Dipstick Positive (Negative); Occult Blood-Urine 50 /ul (Negative); Protein-Dipstick 100 mg/dl (Negative); Urine Bilirubin Dipstick 6 mg/dL (Negative); Urine Clarity Cloudy (Clear); Urine Urobilinogen 12 mg/dl (Normal)
[2021-04-20 16:14] LABS: Bacteria RARE /hpf (None Seen); Red Blood Cells-Urine 5-10 SEEN /hpf (0-5); White Blood Cells >100 SEEN /hpf (0-5)
[2021-04-20] MEDS: Smz/Tmp Ds Tablet 1 TABLET PO (16:36)
== END 2021-04-20 16:40 | disposition home or self-care (01) ==
LOC: ED 16:17
PROVIDERS: Emergency Provider Student in an Organized Health Care Education/Training Program
DX: N12 Tubulo-interstitial nephritis, not specified as acute or chronic (principal); F17.210 Nicotine dependence, cigarettes, uncomplicated
CPT/HCPCS: 81001; 87077; 87086; 87088; 87186; 99283

== ENCOUNTER → 2022-02-22 | Outpatient (CLI) | payer MEDICAID, SELFPAY ==
--- NOTE | 2022-02-22 15:00 | TISS_PTH ---
PATIENT: YOLANDA GOODWIN LOC: [facility] U#:[id number] AGE/SX: 47/F ROOM: RE02/22/[address]: Dr. Doni Cardozo MD : 1975 BED: DIS: 02/22/2022 SPEC #: [id number] RECD: 02/22/22 17:49 STATUS: [place] #: [id number] ALICIA: 02/22/22 15:[address]: Doni Cardozo DEPT: SURGICAL PATHOLOGY RECD BY: Laina Solorzano ENTERED: 02/23/22 08:17 SP TYPE: Tissue Bx OT DR: No Primary Care Phys Tissues: Skin of leg, NOS Procedures: Surgery Specimen Level IV HEADER OPERATION: Right calf excision PRE-OP DIAGNOSIS: Rule out SCC TISSUE SUBMITTED: Right calf MICROSCOPIC DIAGNOSIS Skin of right calf, biopsy: Capillary hemangioma. AM:jamila 02/26/2022 MICROSCOPIC DESCRIPTION Slides are reviewed. GROSS DESCRIPTION Received in fixative is one container labeled with the patient's name and designated right calf. The specimen consists of a casey-white skin ellipse measuring 2 x 1 x 0.6 cm. A casey-brown lesion is noted on the surface measuring 1.2 x 1 cm. The specimen is inked, serially sectioned and submitted entirely in two cassettes. Cassette 1 contains the tips of skin ellipse. / SJ:rg 02/23/2022 TC:1 CPT: 45658
== END | disposition home or self-care (01) ==
PROVIDERS: Visit Provider Family Medicine
DX: D18.01 Hemangioma of skin and subcutaneous tissue (principal)
CPT/HCPCS: 88305

== ENCOUNTER 2022-08-09 23:02 | Emergency (ER) | payer MEDICAID, SELFPAY ==
[2022-08-09 23:02] VITALS: BP 128/90; PULSE 109; RESP 15; TEMP 36.2; O2SAT 99; BMI 30.6
--- NOTE | 2022-08-09 23:14 | US_ITS ---
INDICATION: RUQ pain EXAMINATION: Ultrasound US Abdomen RUQ (limited) TECHNIQUE: [place]ano scale and color doppler imaging was performed of the gallbladder. COMPARISON: None. FINDINGS: 2 echogenic lesions in the liver measuring respectively 9 mm and 22 mm most likely represent hemangiomas. No shadowing gallstone, pericholecystic fluid or gallbladder wall thickening is demonstrated. The proximal common bile duct measures 3 mm, which is within normal limits for the patient''s age. Sonographic Lamb''s Sign: Negative. US/Gallbladder IMPRESSION: 2 echogenic lesions in the liver measuring respectively 9 mm and 22 mm most likely represent hemangiomas. No acute sonographic abnormality is demonstrated in the gallbladder. Electronically Signed: Jones Moreno MD at 0:02 EST ,
--- NOTE | 2022-08-09 23:35 | EX.ED.DYSGE1 ---
HPI History of Present Illness Chief Complaint: Abd Pain Narrative Narrative: Patient is a 47-year-old female with past medical history of depression. She states that over the past week she has had increasing right upper quadrant abdominal pain. She states that there is been no trauma or excessive activity. She denies any fevers or chills. She does state her urine has been cloudy but she denies any concern for UTI or STD or concern for . She states she cannot associate increased pain after eating but has noticed that over the last 1 to 2 days the pain seems to be more persistent and severe and secondary to this comes in for evaluation. [facility] Medical History (Updated 08/10/22 @ 00:[address] Gagan Sotomayor DO) Anxiety Arthritis Depression Home Medications oxycodone-acetaminophen 5 mg-325 mg tablet (Percocet) 1 tab PO Q6H PRN pain 3 days #12 tabs 08/10/22 [Rx Last Taken Unknown] sulfamethoxazole 800 mg-trimethoprim 160 mg tablet (Bactrim DS) 1 tab PO BID 7 days #14 tabs 08/10/22 [Rx Last Taken Unknown] Allergy/AdvReac Type Severity Reaction Status Date / Time No Known Allergies Allergy Verified 08/09/22 23:02 Family History Father Cancer of stomach Cancer of lung Other Patient's father is Social History Smoking Status: Current every day smoker tobacco type: cigarettes ROS ROS ED Constitutional Constitutional ED: Denies chills or fever(s) ENT ENT ED: Denies sore throat Cardiovascular Cardiovascular: Denies chest pain Respiratory/Chest Respiratory/Chest: Denies cough or dyspnea Gastrointestinal Gastrointestinal: Reports abdominal pain; Denies diarrhea, nausea or vomiting Genitourinary Genitourinary ED: Denies dysuria or urinary frequency Musculoskeletal Musculoskeletal: Denies back pain or myalgias Integumentary Denies rash Neurologic Neurologic: Denies headache(s) Hematologic/Lymphatic Hematologic/Lymphatic: Denies easy bleeding or easy bruising EXAM Physical Exam Const Vital Signs: 08/09/22 23:02 Temperature 97.1 F L Temperature Source Temporal Pulse Rate 109 H Respiratory Rate 15 Blood Pressure 128/90 H Blood Pressure Mean 102 Pulse Ox 99 Oxygen Delivery Method Room Air Positive well nourished and well developed General Appearance ED: well developed HEENT Reports moist mucous membranes Eyes PERRL and EOMs intact bilaterally General Eye ED: Negative for scleral icterus Neck supple Resp normal respiratory effort and clear to auscultation bilaterally Cardio regular rate and regular rhythm Rate: other Other Details: Radial pulses are plus 2 out of 4 bilaterally are equal and symmetric GI non-distended GI Narrative: Abdomen is soft and nondistended with normoactive bowel sound. There is pain to palpation in the right upper quadrant with mild voluntary guarding at the site. No rigidity or pulsatile mass. Auscultation: normoactive bowel sounds Palpation: soft Back/Spine Back/Spine Narrative: Mild right CVA tenderness noted Extremity normal to inspection Neuro oriented x3 and CN's II-XII intact bilaterally Sensorium / Orientation: alert Psych mental status grossly normal Skin no rashes or lesions noted Skin Narrative: No overlying changes to suggest trauma or infection General Skin Exam: Negative for jaundice MDM MDM MDM Narrative Medical decision making narrative: Presented to the ER afebrile and reported mainly pain in her right upper quadrant and secondary to this a basic abdominal work-up was ordered along with an ultrasound to rule out gallbladder dysfunction. The labs showed no leukocytosis acute kidney injury severe electrolyte derangement or signs of acute pancreatitis. The patient's ultrasound revealed no signs of gallbladder dysfunction or infection. The patient's urine did show changes consistent with infection and therefore she was started on Rocephin in the ER. She had flank pain on exam as well and there is blood in the urine so she is concerned for retained kidney stone versus acute pyelonephritis. Therefore I did recommend she obtain a CT scan to check for kidney stone but patient did not want to do so at this time. Therefore with her urine showing infection or having right sided abdominal/flank pain I will treat her as pyelonephritis. As she does not show signs of acute kidney injury or sepsis there is no need for admission and she is otherwise safe for discharge. Lab Data Attestation: I reviewed the patient's lab results. Labs: Laboratory Results - last 24 hr 08/09/22 08/09/22 08/09/22 23:50 23:50 23:55 WBC 4.6 RBC 4.43 Hgb 12.9 Hct 39.3 MCV 88.7 MCH 29.1 MCHC 32.8 RDW Std Deviation 40.4 RDW Coeff of Afua 12.4 Plt Count 281 MPV 9.3 Immature Gran % (Auto) 0.200 Neut % (Auto) 64.8 Lymph % (Auto) 22.5 [place] % (Auto) 9.4 Eos % (Auto) 2.2 Baso % (Auto) 0.9 Absolute Neuts (auto) 3.0 Absolute Lymphs (auto) 1.03 Nucleated RBC % 0 Sodium 144 Potassium 3.4 L Chloride 109 H Carbon Dioxide 28.0 Anion Gap 7 BUN 15 Creatinine 0.67 Estim Creat Clear Calc 93.40 Est GFR (MDRD) Af Amer 122 Est GFR (MDRD) Non-Af 101 BUN/Creatinine Ratio 22.5 H Glucose 127 H Calcium 8.6 Total Bilirubin 0.20 Direct Bilirubin 0.06 AST 20 ALT 28 Alkaline Phosphatase 83 Total Protein 6.4 Albumin 2.9 L Globulin 3.5 Lipase 163 Urine Color Yellow Urine Clarity Sl. Cloudy Urine pH 6.0 Ur Specific [place] 1.020 Urine Protein 30 H Urine Glucose (UA) Normal Urine Ketones Negative Urine Occult Blood 25 H Urine Nitrite Positive H Urine Bilirubin Negative Urine Urobilinogen Normal Ur Leukocyte Esterase 500 H Urine RBC 0-5 SEEN Urine WBC >100 SEEN Ur Squamous Epith Cells 0-5 SEEN Urine Bacteria 2+ Urine Mucus 2+ Urine Test Negative Radiography Diagnostic Testing: Clinical Impression(s) from Imaging Studies Gallbladder Ultrasound 08/09/22 23:14 IMPRESSION: 2 echogenic lesions in the liver measuring respectively 9 mm and 22 mm most likely represent hemangiomas. No acute sonographic abnormality is demonstrated in the gallbladder. Electronically Signed: Jones Moreno MD at 0:02 EST , Discharge Plan Triage Chief Complaint: Abd Pain ED Provider: Gagan Sotomayor Dx/Rx/DC Orders Clinical Impression: Acute pyelonephritis, Depression Instructions: ED Pyelonephritis, Female (Adult) Prescriptions: New oxycodone-acetaminophen [Percocet] 5-325 mg tablet 1 tab PO Q6H PRN (Reason: pain) 3 Days Qty: 12 0RF sulfamethoxazole-trimethoprim [Bactrim DS] 800-160 mg tablet 1 tab PO BID 7 Days Qty: 14 0RF Stand Alone Forms: ED Work / School Excuse Primary Care Provider: Erick Cardozo Referrals: Care Physician,No Primary [Non-Staff] - Activity Restrictions/Additional Instructions: If you have worsening symptoms or any further concerns please return to the ER for repeat evaluation Disposition Disposition: Home, Self Care
[2022-08-09] MEDS: Ketorolac 30 MG/ML Syringe IV (23:44)
[2022-08-09 23:57] LABS: Absolute Lymphocyte Count 1.03 X10^3/uL (0.83-4.51); Basophil# 0.04 X10^3/uL; Basophil% 0.9 % (0-1); Eosinophils% 2.2 % (0-5); Hematocrit 39.3 % (37-47); Hemoglobin 12.9 g/dL (12.0-15.0); Lymphocyte # 1.03 X10^3/ul (0.83-4.51); Lymphocyte % 22.5 % (19-41); Mean Corp Hgb Conc 32.8 g/dL (32-36); Mean Corpuscular Hgb 29.1 pg (27.0-32.0); Mean Corpuscular Volume 88.7 fL (81-99); Mean Platelet Vol. 9.3 fl (6.2-12.0); Monocyte# 0.43 X10^3/uL; Monocyte% 9.4 % (0-10); NRBC Flagged by Analyzer 0 % (0-5); Neutrophil # 2.96 X10^3/uL (2.7-7.7); Neutrophil % 64.8 % (47-70); Platelet Count 281 K/mm3 (150-450); RBC Distribution Width CV 12.4 % (11.6-14.6); RBC Distribution Width SD 40.4 fl (35.1-43.9); Red Blood Count 4.43 M/mm3 (4.2-5.4); White Blood Count 4.6 K/mm3 (4.4-11.0)
[2022-08-10 00:03] LABS: Color, Urine Yellow (Yellow); Glucose, Dipstick Normal (Normal); Ketone-Dipstick Negative (Negative); Leukocyte Esterase-Dipstick 500 /ul (Negative); Nitrite-Dipstick Positive (Negative); Occult Blood-Urine 25 /ul (Negative); Protein-Dipstick 30 mg/dl (Negative); Urine Bilirubin Dipstick Negative (Negative); Urine Clarity Sl. Cloudy (Clear); Urine Urobilinogen Normal (Normal)
[2022-08-10 00:07] LABS: Internal QC Validated? YES +Cl - CLEAR BKGD; Pregnancy, Urine Negative Negative
[2022-08-10 00:08] LABS: White Blood Cells >100 SEEN /hpf (0-5)
[2022-08-10 00:09] LABS: Bacteria 2+ /hpf (None Seen); Mucous, Urine 2+ /hpf (<or=2+); Red Blood Cells-Urine 0-5 SEEN /hpf (0-5); Squamous Epithelial Cells - UA 0-5 SEEN /hpf (5-10)
[2022-08-10 00:17] LABS: AST(SGOT) 20 U/L (15-37); Alanine Aminotransfer ALT/SGPT 28 U/L (13-56); Albumin, Serum 2.9 g/dL (3.2-5.0); Alkaline Phosphatase 83 U/L (45-117); Anion Gap 7 (5-15); BUN 15 mg/dL (7-18); BUN/Creat Ratio 22.5 RATIO (10-20); Bilirubin, Direct 0.06 mg/dL (0.00-0.30); Calcium,Total 8.6 mg/dL (8.5-10.1); Chloride 109 mmol/L (98-107); Creatinine, Serum 0.67 mg/dL (0.55-1.02); EST Glomerular Filtration Rate 101 mL/min (>60); Est Glom Filt Rate - Afr Amer 122 mL/min (>60); Globulin 3.5 g/dL (2.2-4.2); Glucose 127 mg/dL (74-106); Lipase 163 U/L (73-393); Potassium 3.4 mmol/L (3.5-5.1); Protein, Total 6.4 g/dL (6.4-8.2); Sodium Level 144 mmol/L (136-145)
[2022-08-10] MEDS: Ceftriaxone 1 GM/50 ML BAG IV (00:45)
== END 2022-08-10 01:14 | disposition home or self-care (01) ==
PROVIDERS: Emergency Provider Emergency Medicine; PCP Family Medicine; Visit Provider Emergency Medicine
DX: N10 Acute pyelonephritis (principal); R31.9 Hematuria, unspecified; R10.11 Right upper quadrant pain; F17.210 Nicotine dependence, cigarettes, uncomplicated; F32.A Depression, unspecified
CPT/HCPCS: 76705; 80048; 80076; 81001; 81025; 83690; 85025; 87086; 87088; 87186; 96365; 96375; 99284; A4216

== ENCOUNTER 2023-03-14 07:06 | Emergency (ER) | payer MEDICAID, SELFPAY ==
[2023-03-14 07:07] VITALS: BP 134/78; PULSE 78; RESP 14; TEMP 36.4; O2SAT 98; BMI 29.9
--- NOTE | 2023-03-14 07:32 | ED.VIS.LOWEX ---
HPI History of Present Illness Chief Complaint: Lower Extremity Injury Informant: patient Narrative Narrative: Increasing nontraumatic swelling right ankle over the last month. Reports history of ankle dislocation and fracture in [address] Whitfield. It was a work-related injury. States increasing pain since yesterday. No fevers. Using crutches. No medications taken today. Has not seen her doctor for symptoms over last month. She states she is unable to see her orthopedics due to financial debt from a different injury. Prior similar symptoms: Yes PFSH PFSH Medical History Anxiety Arthritis Depression Home Medications oxycodone-acetaminophen 5 mg-325 mg tablet (Percocet) 1 tab PO Q6H PRN pain 3 days #12 tabs 08/10/22 [Rx Last Taken Unknown] sulfamethoxazole 800 mg-trimethoprim 160 mg tablet (Bactrim DS) 1 tab PO BID 7 days #14 tabs 08/10/22 [Rx Last Taken Unknown] Allergy/AdvReac Type Severity Reaction Status Date / Time No Known Allergies Allergy Verified 03/14/23 07:06 Family History Father Cancer of stomach Cancer of lung Other Patient's father is Social History Smoking Status: Current every day smoker tobacco type: cigarettes ROS ROS ED Constitutional Constitutional ED: Denies chills, fever(s) or sweats Eyes Eyes: Denies change in vision ENT ENT ED: Denies dysphagia or sore throat Cardiovascular Cardiovascular: Denies chest pain, leg edema, palpitations or racing heartbeat Respiratory/Chest Respiratory/Chest: Denies cough, dyspnea or dyspnea on exertion Gastrointestinal Gastrointestinal: Denies abdominal pain, diarrhea, nausea or vomiting Genitourinary Genitourinary ED: Denies dysuria, hematuria or urinary frequency Musculoskeletal Musculoskeletal: Reports extremity pain; Denies back pain or neck pain Integumentary Denies rash or wounds Neurologic Neurologic: Denies headache(s), paresthesias or weakness EXAM Physical Exam Const Vital Signs: 03/14/23 07:07 Temperature 97.6 F L Temperature Source Temporal Pulse Rate 78 Respiratory Rate 14 Blood Pressure 134/78 H Blood Pressure Mean 96 Pulse Ox 98 Oxygen Delivery Method Room Air Positive well nourished and well developed General Appearance ED: well developed and NAD HEENT Reports moist mucous membranes normocephalic and atraumatic Eyes PERRL, EOMs intact bilaterally and conjunctivae normal General Eye ED: Yes normal appearance of both eyes Neck no lymphadenopathy and supple General: Negative for tenderness Chest Wall Chest: Negative for tenderness Resp normal respiratory effort and normal air movement Effort and Inspection: symmetric chest movement; Negative for respiratory distress Cardio regular rate, regular rhythm and no murmurs Peripheral Pulses: pulses 2+ throughout GI normal to inspection, nondistended, normoactive bowel sounds and non-tender Palpation: Negative for guarding or rebound tenderness present Back/Spine no CVA tenderness and no thoracic nor lumbar tenderness Extremity Extremity Narrative: Right lower extremity no knee pain no foot pain. Ankle had swelling around both sides previous healed scars. Medial malleoli are noted some residual redness, per patient had a blister from placing ice a week ago. Skin is intact. No drainage. No fluctuance. General Extremety ED: Negative for edema or tenderness General Extremity: Negative for edema Neuro oriented x3 and no sensory deficits noted Sensorium / Orientation: awake and alert Skin no rashes or lesions noted and no wounds MDM MDM MDM Narrative Medical decision making narrative: Interventions / MDM: Differential diagnosis: Arthralgia, ankle sprain Diagnosis considered but do not suspect: Septic joint however no erythema or warmth. Hardware loosening, x-ray stable. My EKG interpretation: N/A Imaging independently reviewed and interpreted by myself: Three-view right ankle x-ray: Hardware intact no fractures. External documents reviewed: N/A Test considered but not ordered:N/A ED course: Recurrent swelling since her surgery in 2018. There is no clinical septic joint concerns. Treated with NSAIDs, three-view x-rays was ordered for evaluation. X-ray negative hardware is intact. With her history symptoms since hardware placed, could be hardware irritation causing pain and swelling that is been recurrent. She states she is unable to see her orthopedist who did her initial surgery due to financial issues with the facility. She has crutches. She has NSAIDs at home. Discussed continuing this. She is given follow-up with on-call orthopedist for outpatient evaluation and discussion. All questions were answered. Re-evaluation: stable Disposition discussed with patient/family/significant other: Case discussed with consulting clinician: N/A This note was generated with Techoz dictation software. It may contain incorrect words, spelling, and punctuation that were not noted in checking the note before signing. Radiography Diagnostic Testing: Clinical Impression(s) from Imaging Studies Ankle X-Ray 03/14/23 07:40 IMPRESSION: Degenerative changes. Postsurgical changes of the distal fibula and tibia. Electronically Signed: Debora Neumann MD at 8:32 EDT , Discharge Plan Triage Chief Complaint: Lower Extremity Injury ED Provider: Tr Sanchez Dx/Rx/DC Orders Clinical Impression: Pain and swelling of right ankle, Fixation hardware in leg Instructions: ED Arthralgia Prescriptions: No Action oxycodone-acetaminophen [Percocet] 5-325 mg tablet 1 tab PO Q6H PRN (Reason: pain) 3 Days Qty: 12 0RF sulfamethoxazole-trimethoprim [Bactrim DS] 800-160 mg tablet 1 tab PO BID 7 Days Qty: 14 0RF Stand Alone Forms: ED Work / School Excuse Primary Care Provider: Erick Cardozo Referrals: Erick Cardozo MD [Primary Care Provider] - Misbah Ramey MD [Med Staff - Active Staff] - 1-2 Weeks Activity Restrictions/Additional Instructions: Continue ibuprofen 600 mg every 6 hours. No clinical septic joint. X-ray with your hardware intact. Follow-up with orthopedics for outpatient evaluation with symptoms since hardware was placed in 2018. Disposition Disposition: Home, Self Care Discharge Date/Time: 03/14/23 09:43
--- NOTE | 2023-03-14 07:40 | RAD_ITS ---
INDICATION: pain -- hx ORIF 2017 EXAMINATION/TECHNIQUE: X-RAY - RIGHT XR Ankle Min 3 Views 3 VIEWS COMPARISON: No relevant prior comparison study available FINDINGS: SOFT TISSUES: No soft tissue swelling or gas. No radiopaque foreign body. BONES/JOINTS: There are plate and screw fixation devices within the distal fibula and tibia. No acute fracture or subluxation.. Normal alignment. There are degenerative changes of the hindfoot. No sclerotic or destructive changes observed. RAD/Ankle min 3 Views IMPRESSION: Degenerative changes. Postsurgical changes of the distal fibula and tibia. Electronically Signed: Debora Neumann MD at 8:32 EDT ,
[2023-03-14] MEDS: Ibuprofen 600 MG Tablet PO (08:41)
== END 2023-03-14 09:43 | disposition home or self-care (01) ==
PROVIDERS: Emergency Provider Emergency Medicine; PCP Family Medicine; Visit Provider Emergency Medicine
DX: M25.471 Effusion, right ankle (principal); F17.210 Nicotine dependence, cigarettes, uncomplicated; M19.90 Unspecified osteoarthritis, unspecified site; M25.571 Pain in right ankle and joints of right foot
CPT/HCPCS: 73610; 99283

== ENCOUNTER → 2023-10-07 | Outpatient (CLI) | payer OTHER, SELFPAY ==
--- NOTE | 2023-10-07 14:00 | MRI_ITS ---
STUDY: MRI RIGHT ANKLE WITHOUT CONTRAST REASON FOR EXAM: Female, 48 years old. DISLOCATION RT ANKLE TECHNIQUE: Standardized fat and water weighted pulse sequences were obtained in all 3 orthogonal planes. COMPARISON: Right ankle radiographs dated 03/14/2023. FINDINGS: There is ORIF hardware in the distal tibia and fibula, with surrounding metallic susceptibility artifact. There is mild subcutaneous soft tissue edema along the medial and lateral aspects of the ankle. Normal posterior tibialis tendon. Normal flexor digitorum longus tendon. Normal flexor hallucis longus tendon. Normal peroneus longus and brevis tendons. Normal tibialis anterior tendon. Normal extensor hallucis longus tendon. Normal extensor digitorum longus tendons. Normal Achilles tendon and teno-osseous insertion. Normal plantar fascia. Normal plantar calcaneal tubercles. Normal intrinsic muscles of the rearfoot. Normal distal tibiofibular syndesmotic ligamentous complex. Normal lateral ligamentous complex. Normal subtalar ligaments and sinus tarsi. Normal deltoid ligamentous complex. Normal plantar calcaneonavicular (spring) ligament. Normal tibiotalar articulation. Normal talar dome. Normal subtalar articulations. Normal talonavicular articulation. Normal calcaneocuboid articulation. Normal navicular-cuneiform articulations. MRI/Lower Ext Joint Only (Routine) IMPRESSION: ORIF hardware in the distal tibia and fibula. Mild subcutaneous soft tissue edema along the medial and lateral aspects of the ankle. No acute osseous, ligamentous, or tendinous injury. Electronically Signed: Rojas Burden MD at 10:30 EDT ,
== END | disposition home or self-care (01) ==
LOC: MRI 13:19
PROVIDERS: PCP Family Medicine
DX: S82.851A Displaced trimalleolar fracture of right lower leg, initial encounter for closed fracture (principal); S93.04XA Dislocation of right ankle joint, initial encounter; X58.XXXA Exposure to other specified factors, initial encounter
CPT/HCPCS: 73721

== ENCOUNTER 2024-06-10 00:19 | Emergency (ER) | payer MEDICAID, SELFPAY ==
[2024-06-10 00:19] VITALS: BP 150/79; PULSE 111; RESP 18; TEMP 36.3; O2SAT 92; BMI 33.6
--- NOTE | 2024-06-10 00:22 | RAD_ITS ---
EXAM: XR Foot Min 3 Views INDICATION: Female, 49 years old. Posttraumatic right foot pain status post crush injury TECHNIQUE: AP, lateral, and oblique views COMPARISON: None FINDINGS: BONES: There is a cortical impaction fracture deformity at the dorsal medial base of the proximal phalanx of the great toe. No lytic or blastic lesion. JOINTS: Joints are in normal alignment. No periarticular degenerative or inflammatory change. SOFT TISSUES: Soft tissue swelling overlies the dorsal medial aspect of the first metatarsophalangeal joint and proximal phalanx. RAD/Foot min 3 Views IMPRESSION: Cortical impaction fracture of the dorsal medial base of the first proximal phalanx with overlying soft tissue defect and swelling Electronically Signed: Jigar Apodaca MD at 0:51 EST ,
--- NOTE | 2024-06-10 00:31 | EDS_ITS ---
HPI History of Present Illness Chief Complaint: Lower Extremity Injury Informant: patient Narrative Narrative: 49-year-old female states that just prior to arrival she dropped a metal bed frame on her right great toe/foot. This resulted in laceration and pain. She notes nausea. [facility] Medical History Depression Anxiety Arthritis Home Medications ?Medication ?Instructions ?Recorded ?Last Taken ?Type ergocalciferol (vitamin D2) 1,250 1,250 mcg PO QWEEK 06/10/24 Unknown History mcg (50,000 unit) capsule Allergy/AdvReac Type Severity Reaction Status Date / Time No Known Allergies Allergy Verified 06/10/24 00:22 Family History Father Cancer of stomach Cancer of lung Other Patient's father is Social History Smoking Status: Current every day smoker tobacco type: cigarettes ROS ROS ED Constitutional Constitutional ED: Denies chills or weight loss Eyes Eyes: Denies change in vision or diplopia ENT ENT ED: Denies ear pain, rhinorrhea or sore throat Cardiovascular Cardiovascular: Denies chest pain, orthopnea, palpitations or racing heartbeat Respiratory/Chest Respiratory/Chest: Denies cough, dyspnea or orthopnea Gastrointestinal Gastrointestinal: Denies abdominal pain, diarrhea, nausea or vomiting Genitourinary Genitourinary ED: Denies dysuria, hematuria or urinary frequency Musculoskeletal Musculoskeletal: Reports other Details: Right foot pain ; Denies arthralgias or myalgias Integumentary Reports other Details: Right foot laceration ; Denies abscess or rash Neurologic Neurologic: Denies headache(s) or weakness Psychiatric Psychiatric: Denies anxiety, depression, suicidal ideation or suicidal thoughts Endocrine Endocrinology: Denies polydipsia, polyphagia or polyuria Allergic/Immunologic Allergic/Immunologic ED: Denies mouth swelling, tongue swelling or urticaria EXAM Physical Exam Const Vital Signs: 06/10/24 00:19 Temperature 97.4 F L Temperature Source Oral Pulse Rate 111 H Respiratory Rate 18 Blood Pressure 150/79 H Blood Pressure Mean 102 Pulse Ox 92 Oxygen Delivery Method Room Air Positive well nourished and well developed General Appearance ED: well developed HEENT Reports normocephalic, head/scalp atraumatic and moist mucous membranes Eyes PERRL and EOMs intact bilaterally Neck no lymphadenopathy, supple and no JVD Resp normal respiratory effort and clear to auscultation bilaterally Cardio regular rate, regular rhythm and no murmurs GI normal to inspection, nondistended, normoactive bowel sounds and non-tender Palpation: soft Back/Spine no CVA tenderness and normal ROM Extremity Extremity Narrative: 3 cm L-shaped laceration over the dorsum of the right foot just proximal to the great toe. Mild soft tissue swelling. No obvious bony deformity. No nail involvement. General Extremety ED: Negative for edema General Extremity: Negative for edema Neuro oriented x3 and CN's II-XII intact bilaterally Sensorium / Orientation: alert Motor Exam: strength 5/5 throughout Psych mental status grossly normal Mood & Affect: Negative for depressed or tearful Skin no rashes or lesions noted and no wounds MDM MDM MDM Narrative Medical decision making narrative: Differential diagnosis includes but not limited to fracture contusion laceration ligamentous injury neurovascular injury My independent interpretation the plain films of the right foot cortical disruption over the proximal phalanx of the great toe.. Wound was locally anesthetized using 1% lidocaine washed with Shur-Clens explored and closed using simple interrupted 3-0 Ethilon sutures. Patient received pain and nausea medication. Stitches will need to be removed in 10 days. Patient will be placed in a postop shoe. I will write for Keflex given the open wound and the cortical disruption as well as pain medicine. History & Record Review Discussion w/independent historian: Patient Radiography Diagnostic Testing: Clinical Impression(s) from Imaging Studies Foot X-Ray 06/10/24 00:22 IMPRESSION: Cortical impaction fracture of the dorsal medial base of the first proximal phalanx with overlying soft tissue defect and swelling Electronically Signed: Jigar Apodaca MD at 0:51 EST , Discharge Plan Triage Chief Complaint: Lower Extremity Injury ED Provider: Toño Ferrer Dx/Rx/DC Orders Clinical Impression: Contusion of foot, Foot laceration Instructions: ED Foot Contusion, ED Laceration Extremity Prescriptions: No Action ergocalciferol (vitamin D2) 1,250 mcg (50,000 unit) capsule 1,250 mcg PO QWEEK Primary Care Provider: Doni Cardozo Referrals: Doni Cardozo MD [Primary Care Provider] - 10 Day for suture removal Print Language: Croatian Disposition Disposition: Home, Self Care
[2024-06-10] MEDS: Lidocaine 1% (20 ml mdv) 20 ML Vial INFILT (00:38)
[2024-06-10] MEDS: oxyCODONE 5 MG Tablet PO (00:52)
[2024-06-10] MEDS: Diphth,Pertuss(Acell),Tet Vac 0.5 ML Vial IM (00:52)
[2024-06-10] MEDS: Ondansetron ODT 4 MG Tablet PO (00:52)
[2024-06-10 01:19] VITALS: BP 118/72; PULSE 70; RESP 18; TEMP 36.7; O2SAT 99
== END 2024-06-10 01:58 | disposition home or self-care (01) ==
LOC: ED 00:34
PROVIDERS: Emergency Provider Emergency Medicine; PCP Family Medicine; Visit Provider Emergency Medicine
DX: S91.311A Laceration without foreign body, right foot, initial encounter (principal); F17.210 Nicotine dependence, cigarettes, uncomplicated; W20.8XXA Other cause of strike by thrown, projected or falling object, initial encounter
CPT/HCPCS: 12002; 73630; 90715; 99283

== ENCOUNTER 2024-07-01 20:27 | Emergency (ER) | payer MEDICAID, SELFPAY ==
[2024-07-01 20:28] VITALS: BP 155/91; PULSE 94; RESP 16; TEMP 36.4; O2SAT 97; BMI 34.9
--- NOTE | 2024-07-01 20:51 | EKG12_ITS ---
Test Reason : DYSRHYTHMIA Blood Pressure : */* mmHG Vent. Rate : 93 BPM Atrial Rate : 93 BPM P-R Int : 142 ms QRS Dur : 86 ms QT Int : 390 ms P-R-T Axes : 42 -14 8 degrees QTcB Int : 484 ms Normal sinus rhythm Minimal voltage criteria for LVH, may be normal variant ( R in aVL ) Prolonged QT Abnormal ECG Confirmed by ELTON FLEMING, LINNEA ([id number]), web editor AGUEDA HOOPER ([id number]) on 07/03/2024 9:38:24 AM Referred By: Confirmed By: LINNEA CONDE MD
--- NOTE | 2024-07-01 20:52 | EDS_ITS ---
HPI History of Present Illness Chief Complaint: Edema Informant: patient Onset/Context/Timing Onset: Weeks Context: Gradual Onset Timing: Continuous Current Severity: Mild Maximum Severity: Mild Narrative Narrative: 49-year-old female no stated past medical history but states she has not seen a doctor recently due to change of insurance. She has a known prior right ankle fracture of the remove plates earlier this year. States that for last 1 to 2 weeks or longer she has had swelling in both lower extremities. She has had a 50 pound weight gain in the last 8 to 9 months. Denies any chest pain. No shortness of breath. States she is urinating normally. Denies any history of diabetes, kidney disease or heart disease. Prior similar symptoms: No Recent Illness/Hospitalization: No PFSH PFSH Medical History Depression Anxiety Arthritis Home Medications ?Medication ?Instructions ?Recorded ?Last Taken ?Type ergocalciferol (vitamin D2) 1,250 1,250 mcg PO QWEEK 06/10/24 Unknown History mcg (50,000 unit) capsule Allergy/AdvReac Type Severity Reaction Status Date / Time No Known Allergies Allergy Verified 06/10/24 00:22 Family History Father Cancer of stomach Cancer of lung Other Patient's father is Social History Smoking Status: Current every day smoker tobacco type: cigarettes ROS ROS ED ROS Narrative No recent illness. 50 pound weight gain in 8+ months. Bilateral lower extremity swelling. Constitutional Constitutional ED: Denies chills or fever(s) Eyes Eyes: Denies blurry vision ENT ENT ED: Denies ear pain Cardiovascular Cardiovascular: Denies chest pain Respiratory/Chest Respiratory/Chest: Denies cough or dyspnea Gastrointestinal Gastrointestinal: Denies abdominal pain Genitourinary Genitourinary ED: Denies dysuria or hematuria Musculoskeletal Musculoskeletal: Denies arthralgias Integumentary Denies abscess Neurologic Neurologic: Denies headache(s) Psychiatric Psychiatric: Denies anxiety Endocrine Endocrinology: Denies cold intolerance Allergic/Immunologic Allergic/Immunologic ED: Denies mouth swelling, tongue swelling or urticaria EXAM Physical Exam Narrative Exam Narrative: Well-appearing middle-aged female. Vital signs are stable afebrile. No distress. Pulse ox 97% on room air no signs of hypoxia. H EENT exam unremarkable. Moist mucous members. Neck nontender no JVD. No lymphadenopathy. Lungs clear to auscultation bilaterally. Equal symmetrical. Heart rate about 95. No murmur. Chest wall ribs nontender. Abdomen soft nontender. Moving all 4 extremities. Normal customer care professional strength. Normal dorsi plantarflexion. She has 1-2+ pitting edema right lower extremity. 1+ on the left. Calves are nontender no cords. Normal range of motion. Normal strength. Back nontender. Neurologically she is awake and alert no focal motor deficits. Const Vital Signs: 07/01/24 20:28 07/01/24 20:39 07/01/24 21:07 Temperature 97.5 F L Temperature Source Temporal Pulse Rate 94 Respiratory Rate 16 Respiratory Effort Normal Non-Labored Respiratory Pattern Normal Blood Pressure 155/91 H Blood Pressure Mean 112 Pulse Ox 97 Oxygen Delivery Method Room Air Room Air Positive well nourished and well developed; Negative for cachectic, contractures or unkempt General Appearance ED: well developed and NAD; Negative for unkempt, cachectic, contractures, cyanotic, diaphoretic or pallor Nutritional Appearance: Negative for cachectic HEENT Reports moist mucous membranes Negative for trauma or tenderness Eyes PERRL and EOMs intact bilaterally General Eye ED: Negative for pale conjunctiva or scleral icterus Neck no lymphadenopathy, supple and no JVD General: Negative for tenderness Lymph Lymphatic: Negative for other Chest Wall inspection of chest normal and palpation of chest normal Resp normal respiratory effort and clear to auscultation bilaterally Effort and Inspection: Negative for retractions Auscultation: Negative for rales, rhonchi, wheezes or diminished lung sounds Cardio regular rate, regular rhythm, S1 normal heart sound, S2 normal heart sound and no murmurs GI normal to inspection, nondistended, normoactive bowel sounds, non-tender, non- distended and no masses Palpation: soft; Negative for tender, guarding or rebound tenderness present Back/Spine no CVA tenderness General Back: Negative for CVA tenderness Cervical Spine: Negative for cervical spine tenderness Thoracic Spine / Upper Back: Negative for thoracic spinal tenderness Lumbar Spine / Lower Back: Negative for lumbar spinal tenderness Extremity Negative for normal to inspection Extremity Narrative: Bilateral lower extremity edema slightly worse on the right than the left. Nontender no cords. General Extremety ED: Yes edema General Extremity: edema Neuro oriented x3 and CN's II-XII intact bilaterally Sensorium / Orientation: alert; Negative for orientation impaired Motor Exam: strength 5/5 throughout; Negative for general weakness or strength abnormal Psych mental status grossly normal Appearance: Negative for unkempt Attitude: No agitated Mood & Affect: Negative for depressed, anxious or tearful Skin no rashes or lesions noted and no wounds General Skin Exam: Negative for jaundice or pallor Lesions: No lesion noted Rashes: No rashes noted Trauma: Negative for abrasion Wounds: Negative for wounds noted MDM MDM MDM Narrative Medical decision making narrative: 49-year-old female 9-month history of weight gain. Bilateral lower extremity edema now. Differential would include congestive heart failure, dysrhythmia, renal insufficiency versus other etiologies. Chest x-ray and cardiac workup w ill be performed. Repeat exam at 10:32 PM patient doing well. Exam unchanged. Clinically looks well. Creatinine is elevated to 1.4 it is normally around 0.6. There is nothing really admitted to the hospital for tonight. She will need follow-up and have further evaluation for her bilateral lower extremity edema I will have her follow-up with a local primary care physician for further evaluation. Patient and I discussed that she needs further evaluation for the leg edema and the elevated creatinine. But she is comfortable not being admitted to the hospital. History & Record Review Discussion w/independent historian: Patient Additional record(s) reviewed:: Prior inpatient record, Prior outpatient record, Prior ED visit and Prior labs Lab Data Attestation: I reviewed the patient's lab results. Lab results narrative: CBC normal. White count of 6. H&H 13 and 40. Platelets 280. Chest x-ray normal. Chemistries show gap 6. BUN 22 creatinine 1.4. Glucose 102. Liver enzymes normal. Troponin normal at 5. Labs: Laboratory Results - last 24 hr 07/01/24 21:00 WBC 6.8 RBC 4.57 Hgb 13.4 Hct 40.7 MCV 89.1 MCH 29.3 MCHC 32.9 RDW Std Deviation 41.2 RDW Coeff of Afua 12.5 Plt Count 280 MPV 9.9 Immature Gran % (Auto) 0.300 Neut % (Auto) 63.4 Lymph % (Auto) 26.7 Baxter % (Auto) 6.3 Eos % (Auto) 2.4 Baso % (Auto) 0.9 Absolute Neuts (auto) 4.3 Absolute Lymphs (auto) 1.81 Nucleated RBC % 0 Sodium 141 Potassium 4.1 Chloride 107 Carbon Dioxide 28.0 Anion Gap 6 BUN 22 H Creatinine 1.44 H Estim Creat Clear Calc 53.94 Est GFR (MDRD) Af Amer 50 L Est GFR (MDRD) Non-Af 41 L BUN/Creatinine Ratio 15.3 Glucose 102 Calcium 8.8 Total Bilirubin 0.30 AST 15 ALT 32 Alkaline Phosphatase 82 Troponin I High Sens 5 B-Natriuretic Peptide 27.9 Total Protein 7.6 Albumin 3.8 Globulin 3.8 Albumin/Globulin Ratio 1.0 Radiography Chest X-Ray - ED: 2 View, Read by ED Physician, Read by Radiologist, Normal, Heart, Lungs, Mediastinum, Bony Structures and No Acute Disease Diagnostic Testing: Clinical Impression(s) from Imaging Studies Chest X-Ray 07/01/24 21:10 IMPRESSION: No radiographic evidence of acute cardiopulmonary disease. Electronically Signed: Shen De DO at 21:27 EST , Chest x-ray, 2 views, AP and lateral, interpreted both by myself and radiologist shows no acute abnormality. Normal cardiac silhouette. Normal lung burk. No effusions. No edema. No cardiomegaly. Rhythm Strip Rhythm Strip: Sinus Rhythm Rate: 93 Ectopy: None EKG Initial EKG: Attestation: I personally reviewed and interpreted this EKG as follows: Interpretation: Sinus Rhythm and No Acute Injury Pattern Comments: Normal sinus rhythm rate 93 no acute signs of [place], ischemia or dysrhythmia. Discharge Plan Triage Chief Complaint: Edema ED Provider: Beto Mead Dx/Rx/DC Orders Prescriptions: No Action ergocalciferol (vitamin D2) 1,250 mcg (50,000 unit) capsule 1,250 mcg PO QWEEK Primary Care Provider: Care Physician,No Primary Referrals: Doni Cardozo MD [Med Staff - Restaurant Line Cook] - Print Language: Polish
--- NOTE | 2024-07-01 21:10 | RAD_ITS ---
EXAM: XR CHEST, 2 VIEWS CLINICAL INDICATION: chest pain TECHNIQUE: Frontal and lateral views of the chest. COMPARISON: No relevant prior studies available. FINDINGS: LUNGS AND PLEURAL SPACES: No significant abnormality. No consolidation or edema. No pneumothorax. No effusion. HEART: No significant abnormality. Cardiac silhouette not enlarged. MEDIASTINUM: Central airways and mediastinal contour are unremarkable. BONES/JOINTS: No significant abnormality. No acute fracture. SOFT TISSUES: No significant abnormality. RAD/Chest PA and Lateral IMPRESSION: No radiographic evidence of acute cardiopulmonary disease. Electronically Signed: Shen De DO at 21:27 EST ,
[2024-07-01 21:16] LABS: Absolute Lymphocyte Count 1.81 X10^3/uL (0.83-4.51); Absolute Neutrophil Count 4.3 X10^3/uL (2.0-7.7); Basophil# 0.06 X10^3/uL; Basophil% 0.9 % (0-1); Eosinophil# 0.16 X10^3/uL; Eosinophils% 2.4 % (0-5); Hematocrit 40.7 % (37-47); Hemoglobin 13.4 g/dL (12.0-15.0); Lymphocyte # 1.81 X10^3/ul (0.83-4.51); Lymphocyte % 26.7 % (19-41); Mean Corp Hgb Conc 32.9 g/dL (32-36); Mean Corpuscular Hgb 29.3 pg (27.0-32.0); Mean Corpuscular Volume 89.1 fL (81-99); Mean Platelet Vol. 9.9 fl (6.2-12.0); Monocyte# 0.43 X10^3/uL; Monocyte% 6.3 % (0-10); NRBC Flagged by Analyzer 0 % (0-5); Neutrophil % 63.4 % (47-70); Platelet Count 280 K/mm3 (150-450); RBC Distribution Width CV 12.5 % (11.6-14.6); RBC Distribution Width SD 41.2 fl (35.1-43.9); Red Blood Count 4.57 M/mm3 (4.2-5.4); White Blood Count 6.8 K/mm3 (4.4-11.0)
[2024-07-01 21:45] LABS: BNP,B-Type NATRIURETIC PEPTIDE 27.9 pg/mL (0-100)
[2024-07-01 22:28] VITALS: BP 118/89; PULSE 98; RESP 17; O2SAT 99
[2024-07-01 22:33] LABS: AST(SGOT) 15 U/L (15-37); Alanine Aminotransfer ALT/SGPT 32 U/L (13-56); Albumin, Serum 3.8 g/dL (3.2-5.0); Alkaline Phosphatase 82 U/L (45-117); Anion Gap 6 (5-15); BUN 22 mg/dL (7-18); BUN/Creat Ratio 15.3 RATIO (10-20); Calcium,Total 8.8 mg/dL (8.5-10.1); Chloride 107 mmol/L (98-107); Creatinine, Serum 1.44 mg/dL (0.55-1.02); EST Glomerular Filtration Rate 41 mL/min (>60); Est Glom Filt Rate - Afr Amer 50 mL/min (>60); Estimated Creatinine Clearance 53.94 ml/min; Globulin 3.8 g/dL (2.2-4.2); Glucose 102 mg/dL (74-106); Potassium 4.1 mmol/L (3.5-5.1); Protein, Total 7.6 g/dL (6.4-8.2); Sodium Level 141 mmol/L (136-145); Troponin-I HS 5 pg/mL (3.0-54.0)
[2024-07-01 22:51] VITALS: BP 118/89; PULSE 98; RESP 17; TEMP 36.6; O2SAT 99
== END 2024-07-01 22:52 | disposition home or self-care (01) ==
PROVIDERS: Emergency Provider Emergency Medicine; Visit Provider Emergency Medicine
DX: R60.0 Localized edema (principal); F17.210 Nicotine dependence, cigarettes, uncomplicated
CPT/HCPCS: 71046; 80053; 83880; 84484; 85025; 93005; 99284; A4216

== ENCOUNTER → 2025-02-03 | Outpatient (CLI) | payer MEDICAID, SELFPAY ==
[2025-02-03 12:11] LABS: Hematocrit 43.2 % (37-47); Hemoglobin 14.4 g/dL (12.0-15.0); Immature Granulocytes Count 0.010 X10^3/uL (0.0-0.0); Mean Corp Hgb Conc 33.3 g/dL (32-36); Mean Corpuscular Volume 88.7 fL (81-99); Mean Platelet Vol. 9.9 fl (6.2-12.0); NRBC Flagged by Analyzer 0 % (0-5); Platelet Count 286 K/mm3 (150-450); RBC Distribution Width CV 12.7 % (11.6-14.6); RBC Distribution Width SD 41.7 fl (35.1-43.9); Red Blood Count 4.87 M/mm3 (4.2-5.4); White Blood Count 5.7 K/mm3 (4.4-11.0)
[2025-02-03 13:31] LABS: AST(SGOT) 16 U/L (<=31); Alanine Aminotransfer ALT/SGPT 24 U/L (<=34); Albumin, Serum 4.5 g/dL (3.5-5.0); Alkaline Phosphatase 79 U/L (35-104); Anion Gap 17 (5-15); BUN 17 mg/dL (4-19); BUN/Creat Ratio 20.8 RATIO (10-20); Calcium,Total 10.0 mg/dL (7.6-11.0); Carbon Dioxide 18.8 mmol/L (21.0-32.0); Chloride 103 mmol/L (98-108); Follicle Stimulating Hormone 88.7 mIU/mL; Globulin 3.0 g/dL (2.2-4.2); Glucose 112 mg/dL (70-99); Potassium 4.0 mmol/L (3.3-5.1)
== END | disposition home or self-care (01) ==
LOC: VSLAB 11:54
PROVIDERS: PCP Family Medicine; Visit Provider Family Medicine
DX: R61 Generalized hyperhidrosis (principal)
CPT/HCPCS: 36415; 80053; 83001; 83002; 83036; 84443; 85025

== ENCOUNTER → 2025-02-05 | Outpatient (CLI) | payer MEDICAID, SELFPAY | END | disposition home or self-care (01) | PROVIDERS: PCP Family Medicine; Referring Provider Family Medicine; Visit Provider Family Medicine | DX: M25.511 Pain in right shoulder (principal) | CPT/HCPCS: 73030 ==

== ENCOUNTER → 2025-03-03 | Outpatient (CLI) | payer MEDICAID, SELFPAY ==
--- NOTE | 2025-03-03 12:12 | FLU_PTH ---
PATIENT: YOLANDA GOODWIN LOC: [facility] U#:[id number] AGE/SX: 50/F ROOM: RE03/03/[address]: Dr. Courtney Doss MD : 1975 BED: DIS: 03/03/2025 SPEC #: [id number] RECD: 03/03/25 13:00 STATUS: [place] #: [id number] ALICIA: 03/03/25 12:[address]: Courtney Doss DEPT: CYTOLOGY RECD BY: Long Duron ENTERED: 03/04/25 09:43 SP TYPE: Fluid OTHR DR: Anastasia Curran, [facility], DO Tissues: A - Urine Procedures: Special Stain Group II Cytospin Fluid HEADER OPERATION: Not noted PRE-OP DIAGNOSIS: Gross hematuria TISSUE SUBMITTED: A- Urine for cytology - voided DIAGNOSIS CYTOLOGY A. Urine, voided (cytospin): - No malignant cells identified. - Rare cells observed. CYTOLOGY STUDY Slides are reviewed. CYTOLOGY GROSS A. Received is 5 ml of cloudy - pale-yellow fluid labeled with the patient's name and and designated per the requisition as urine. Submitted for cytology preparation. 03/04/2025 CPT: 34125
[2025-03-03 18:01] LABS: Cytology, Body Fluid / CSF SEE PATHOLOGY REPORT
== END | disposition home or self-care (01) ==
LOC: LABSPEC 05-19 12:08
PROVIDERS: PCP Family Medicine; Visit Provider Urology
DX: R31.0 Gross hematuria (principal)
CPT/HCPCS: 88305; 88108; 88313

== ENCOUNTER → 2025-03-29 | Outpatient (CLI) | payer MEDICAID, SELFPAY ==
--- NOTE | 2025-03-29 14:23 | CT_ITS ---
PROCEDURE: CT ABD/PELVIS W/WO CONTRAST 03/29/2025 REASON FOR EXAM: HEMATURIA TECHNIQUE: Procedure Code: [id number] Modality: CT Procedure: CT ABD/PELVIS W/WO CONTRAST Coronal and Sagittal reconstruction series were provided. CONTRAST: 100 mL of Isovue 370 One or more dose reduction techniques were used (e.g., Automated exposure control, adjustment of the mA and/or kV according to patient size, use of iterative reconstruction technique. RADIATION DOSE SUMMARY: DLP: 4406 mGycm COMPARISON: None FINDINGS: Limited sections of the lung bases demonstrate no focal pulmonary mass or consolidations. The liver, spleen, pancreas, and both adrenal glands demonstrate no acute findings. Hepatomegaly to 18.3 cm. The gallbladder is unremarkable. The stomach is unremarkable. The small bowel loops are not dilated. The appendix is normal. No colonic obstruction. Colonic diverticulosis without acute diverticulitis. There is no free air or significant free fluid. The kidneys are unremarkable. Mildly thickened urinary bladder wall which may reflect cystitis vs nondistention; consider correlation with urinalysis. The pelvic structures are intact. Uterus is surgically removed. No significant lymphadenopathy. The aorta and IVC demonstrate no acute findings. Moderate atherosclerosis of the abdominal vasculature. Visualized osseous structures demonstrate no acute abnormality. CT/CT Abd/Pelvis W/WO Contrast IMPRESSION: Mildly thickened urinary bladder wall which may reflect cystitis vs nondistenti on; consider correlation with urinalysis. Reading Location: [id number]
== END | disposition home or self-care (01) ==
LOC: CT 14:21
PROVIDERS: PCP Family Medicine; Referring Provider Urology; Visit Provider Urology
DX: R31.0 Gross hematuria (principal)
CPT/HCPCS: 74178; Q9967